=== PATIENT | male | born 1970 | race Caucasian/White ===

== ENCOUNTER 2017-03-05 23:33 | Emergency (ER) | payer OTHER ==
[2017-03-05 23:46] VITALS: BP 128/90; PULSE 83; RESP 20; TEMP 97.3; O2SAT 97
[2017-03-06] MEDS ORDERED: Tetanus/Diphtheria Toxoids 0.5 ml Syringe IM ONE ×2 (00:15→00:22)
--- NOTE | 2017-03-06 00:16 | C.PDOC ---
History Of Present Illness Patient is a 46 year old male who presents to the ER with a complaint of left big toe pain for the past 2 days after a heavy sofa fell on it. Patient noted blood under the nail, which he tried to drain with a needle at home yesterday. Today, Patient noted increased swelling and redness. Patient denies fever, chills, wound discharge, denies deformity, weakness, sensory or vascular deficits to Left foot. Ambulate to ED. Time Seen by Provider: 03/06/17 00:03 Chief Complaint (Nursing): Lower Extremity Problem/Injury History Per: Patient History/Exam Limitations: no limitations Onset/Duration Of Symptoms: Days (2) Current Symptoms Are (Timing): Still Present Recent travel outside of the [place]: No Additional History Per: Patient - Ankle/Foot Description Of Injury: Other (Dropped couch on toe) Past Medical History Reviewed: Historical Data, Nursing Documentation, Vital Signs Vital Signs: Last Vital Signs Temp 97.3 F L 03/05/17 23:36 Pulse 83 03/05/17 23:36 Resp 20 03/06/17 01:02 BP 128/90 03/05/17 23:36 Pulse Ox 97 03/06/17 00:53 - Medical History PMH: Kidney Stones Surgical History: No Surg Hx Family History: States: Unknown Family Hx - Social History Hx Tobacco Use: No Hx Alcohol Use: No Hx Substance Use: No - Immunization History Hx Tetanus Toxoid Vaccination: Yes Hx Influenza Vaccination: No Hx Pneumococcal Vaccination: No Review Of Systems Constitutional: Negative for: Fever, Chills Musculoskeletal: Positive for: Foot Pain (Left big toe). Negative for: Other ( Deformity of left big toe) Physical Exam - Physical Exam Appears: Well, Non-toxic, No Acute Distress Skin: Normal Color, Warm, No Rash Eye(s): bilateral: PERRL Extremity: Normal ROM, Tenderness (Left foot tenderness over 1st distal phalanx , (+)20% proximal subungual hematoma.), Capillary Refill (less than 2sec to Left foot), No Deformity, Swelling (Erythema nd edema to Left 1st distal phalanx. No proximal streaking, nO flactulance.) Neurological/Psych: Oriented x3, Normal Speech, Normal Motor, Normal Sensation, Normal Reflexes ED Course And Treatment O2 Sat by Pulse Oximetry: 97 (Room air) Pulse Ox Interpretation: Normal - Other Rad Left foot X-Ray: Interpreted by Me, Viewed By Me Interpretation: no acute fx or dislocation Progress Note: X-ray of left foot ordered. Doryx PO, tetanus IM, and ultram PO administered. On re-evaluation, pt is afebrile, hemodynamicaly stable. non- toxic. Ambulatory in ED with stable gait. Left foot: exam c/w small subungual hematoma 1st toe with mild erythema, edema of 1st distal phalanx. NO deformity, no proximal streaking, no flactulance. FAROM, no neurovascular deficits. Foot xray review and appears normal. Pt advised. ref. to f/u with [facility] In 2- 3 days for re-eval. return to ED if nay worsening or new changes. Disposition Counseled Patient/Family Regarding: Studies Performed, Diagnosis, Need For Followup, Rx Given - Disposition Referrals: [facility]ry [facility] [Outside] Disposition: HOME/ ROUTINE Disposition Time: 00:36 Condition: STABLE Additional Instructions: Warm salty water foot soaks Light duty, avoid prolong walking Take medication as prescribed Follow up with [facility] in 2-3 days for re-evaluation. Return to Ed if nay worsening or new changes. Prescriptions: Doxycycline Hyclate [Doryx] 100 mg PO BID #14 cap Ibuprofen [Motrin Tab] 400 mg PO Q6 #20 tab Instructions: Subungual Hematoma (ED), Foot Contusion (ED) Print Language: [place] LUCIAN - Clinical Impression Clinical Impression: Contusion, toe, Subungual hematoma - Scribe Statement The provider has reviewed the documentation as recorded by the Scribneida Hubbard All medical record entries made by the Scribneida were at my direction and personally dictated by me. I have reviewed the chart and agree that the record accurately reflects my personal performance of the history, physical exam, medical decision making, and the department course for this patient. I have also personally directed, reviewed, and agree with the discharge instructions and disposition.
--- NOTE | 2017-03-06 08:57 | RAD ---
PROCEDURE: Left Foot Radiographs. HISTORY: injury COMPARISON: None available. FINDINGS: BONES: No acute displaced fracture. JOINTS: No dislocation. SOFT TISSUES: Soft tissue swelling. No evidence of radiopaque foreign body. OTHER FINDINGS: None. IMPRESSION: Soft tissue swelling. No acute displaced fracture, dislocation, or significant joint effusion identified. If symptoms persist, or if there is continued clinical concern, x-ray follow-up in 7-10 days should be considered.
== END 2017-03-06 01:02 | disposition home or self-care (01) ==
LOC: C.ER 23:33
DX: S90.112A Contusion of left great toe without damage to nail, initial encounter (principal); W20.8XXA Other cause of strike by thrown, projected or falling object, initial encounter; Y93.89 Activity, other specified; Y92.008 Other place in unspecified non-institutional (private) residence as the place of occurrence of the external cause

== ENCOUNTER 2017-08-16 09:33 | Emergency (ER) | payer OTHER, SELFPAY ==
[2017-08-16 10:02] VITALS: TEMP 98
--- NOTE | 2017-08-16 10:03 | C.PDOC ---
Chief Complaint (Nursing): Chest Pain Past Medical History Vital Signs: Last Vital Signs Temp Pulse 77 08/16/17 09:59 Resp 14 08/16/17 09:59 BP 119/85 08/16/17 09:59 Pulse Ox 96 08/16/17 09:59 - Medical History PMH: Hypercholesterolemia, Kidney Stones, Chronic Kidney Disease Family History: States: Unknown Family Hx - Social History Hx Tobacco Use: No Hx Alcohol Use: No Hx Substance Use: No - Immunization History Hx Tetanus Toxoid Vaccination: No Hx Influenza Vaccination: No Hx Pneumococcal Vaccination: No ED Course And Treatment O2 Sat by Pulse Oximetry: 96 Disposition - Disposition
--- NOTE | 2017-08-16 10:13 | C.PDOC ---
History Of Present Illness Patient is a 47 year old male presents to Emergency Department for evaluation of intermittent substernal chest pain associated with palpitations for the last 2 days. Patient reports having several episodes of chest pain that lasts for approximately 10-15 minutes. Pain is described as strong, pressure and as burning sensation, and occasionally radiates to the left shoulder and back of his head. Notes that pain is worse when laying down and is relieved when sitting up. Patient notes that pain was worse last night, pt admits to eating a meal late last night. Patient states that his pain currently feels the same as last night. Otherwise, pt denies any shortness of breath, headache, fever, chills cough, nausea, vomiting, diarrhea, diaphoresis, jaw pain, back pain, lower extremity pain/swelling, recent travels, recent surgery, or recent prolonged immobilization. Chief Complaint (Nursing): Chest Pain History Per: Patient History/Exam Limitations: no limitations Onset/Duration Of Symptoms: Days (2), Intermittent Episodes Current Symptoms Are (Timing): Still Present Quality: Burning, Pressure Associated Symptoms: denies: Nausea, Dyspnea, Diaphoresis, Syncope Modifying Factors: None Exacerbating Factors: Other (laying down) Alleviating Factors: None Recent travel outside of the [place]: No Additional History Per: Patient Past Medical History Reviewed: Historical Data, Nursing Documentation, Vital Signs Vital Signs: Last Vital Signs Temp 98 F 08/16/17 11:40 Pulse 76 08/16/17 11:40 Resp 16 08/16/17 11:40 BP 110/67 08/16/17 11:40 Pulse Ox 96 08/16/17 12:29 - Medical History PMH: Hypercholesterolemia, Kidney Stones, Chronic Kidney Disease Family History: States: Unknown Family Hx - Social History Hx Tobacco Use: No Hx Alcohol Use: No Hx Substance Use: No - Immunization History Hx Tetanus Toxoid Vaccination: No Hx Influenza Vaccination: No Hx Pneumococcal Vaccination: No Review Of Systems Except As Marked, All Systems Reviewed And Found Negative. Constitutional: Negative for: Fever, Chills Cardiovascular: Positive for: Chest Pain, Palpitations. Negative for: Edema, Light Headedness Respiratory: Negative for: Cough, Shortness of Breath, Wheezing Gastrointestinal: Negative for: Nausea, Vomiting, Abdominal Pain, Diarrhea Musculoskeletal: Negative for: Neck Pain, Back Pain Neurological: Negative for: Headache, Dizziness Physical Exam - Physical Exam Appears: Non-toxic, No Acute Distress Skin: Normal Color, Warm, Dry Head: Atraumatic, Normacephalic Eye(s): bilateral: Normal Inspection, PERRL, EOMI Ear(s): Bilateral: Normal Nose: Normal Oral Mucosa: Moist Throat: Normal Neck: Normal ROM, Supple Lymphatic: No Adenopathy Chest: Symmetrical, No Deformity, Tenderness (mild sub sternal tenderness upon palpation), No Ecchymosis, No Subcutaneous Emphysema Cardiovascular: Rhythm Regular (S1, S2 within normal limits), No Murmur Respiratory: Normal Breath Sounds, No Rales, No Rhonchi, No Wheezing Gastrointestinal/Abdominal: Soft, No Tenderness Back: Normal Inspection, No CVA Tenderness Extremity: Normal ROM, No Pedal Edema, Capillary Refill (<2 secs.), No Deformity Extremity: Bilateral: Atraumatic, Normal Color And Temperature Pulses: Left Radial: Normal, Right Radial: Normal Neurological/Psych: Oriented x3, Normal Speech, Normal Cognition Gait: Steady ED Course And Treatment - Laboratory Results Result Diagrams: 08/16/17 10:20 08/16/17 10:20 Lab Interpretation: Normal ECG: Interpreted By Nh ECG Rhythm: Sinus Rhythm ECG Interpretation: Normal, No Acute Changes Interpretation Of ECG: NSR at 79 BPM,no acute STTW changes,no ectopy,axis wnl, intervals all wnl Rate From EC O2 Sat by Pulse Oximetry: 96 (on RA) Pulse Ox Interpretation: Normal - Radiology CXR: Interpreted by Nh CXR Interpretation: Yes: No Acute Disease Medical Decision Making Medical Decision Making: Blood work, EKG, CXR ordered and reviewed. Pain is positional,seems worse with recumbency.Likely GI in etiology.W/u is wnl Disposition Counseled Patient/Family Regarding: Studies Performed, Diagnosis, Need For Followup - Disposition Referrals: [facility] [Outside] Disposition: HOME/ ROUTINE Disposition Time: 11:07 Condition: GOOD Prescriptions: Pantoprazole Sodium [Protonix] 40 mg PO DAILY #14 cap Instructions: Chest Pain (ED) Forms: [facility] (Macedonian), [facility] (Telugu) Print Language: ITALIAN - Clinical Impression Clinical Impression: Atypical chest pain, Chest pain - Scribe Statement The provider has reviewed the documentation as recorded by the Scribe Mark Pendleton All medical record entries made by the Scribe were at my direction and personally dictated by me. I have reviewed the chart and agree that the record accurately reflects my personal performance of the history, physical exam, medical decision making, and the department course for this patient. I have also personally directed, reviewed, and agree with the discharge instructions and disposition.
[2017-08-16 10:24] LABS: BASO % 0.6 % (0.0-2.0); EOS # 0.2 K/uL (0.0-0.7); EOS % 3.8 % (0.0-4.0); HEMATOCRIT 44.8 % (35.0-51.0); LYMPH # 1.2 K/uL (1.0-4.3); LYMPH % 23.9 % (20.0-40.0); MEAN CELL VOLUME 90.7 fL (80.0-94.0); MEAN CORPUSCULAR HEMOGLOBIN 31.1 pg (27.0-31.0); MEAN CORPUSCULAR HGB CONC 34.3 g/dL (33.0-37.0); MEAN PLATELET VOLUME 8.3 fL (7.2-11.7); MONO # 0.5 K/uL (0.0-0.8); MONO % 10.7 % (0.0-10.0); NRBC % 0.1 % (0.0-2.0); RED CELL DISTRIBUTION WIDTH 13.2 % (11.5-14.5)
[2017-08-16 10:45] LABS: CHLORIDE 97 mmol/L (98-107)
[2017-08-16 10:46] LABS: POTASSIUM 4.2 mmol/L (3.6-5.2); SODIUM 135 mmol/L (132-148)
[2017-08-16 10:48] LABS: ALB/GLOB RATIO 1.4 (1.0-2.1); ALKALINE PHOSPHATASE 79 U/L (38-126); AST/SGOT 25 U/L (17-59); BILIRUBIN,TOTAL 0.6 mg/dL (0.2-1.3); CARBON DIOXIDE 27 mmol/L (22-30); GFR AFRICAN-AMERICAN > 60; TOTAL PROTEIN 7.8 g/dL (6.3-8.3)
[2017-08-16 10:49] LABS: ALT/SGPT 44 U/L (21-72); BLOOD UREA NITROGEN 14 mg/dL (9-20); CALCIUM 9.2 mg/dl (8.6-10.4); GLUCOSE,RANDOM 94 mg/dL (75-110)
--- NOTE | 2017-08-16 10:54 | RAD ---
HISTORY: chest pain COMPARISON: None available. TECHNIQUE: Chest, one view. FINDINGS: Examination limited by habitus and hypoinflation. LUNGS: No focal consolidation. Please note that chest x-ray has limited sensitivity for the detection of pulmonary masses. PLEURA: No significant pleural effusion identified. No definite pneumothorax . CARDIOVASCULAR: Heart size appears top normal. OSSEOUS STRUCTURES: No acute osseous abnormality identified. VISUALIZED UPPER ABDOMEN: Unremarkable. OTHER FINDINGS: None. IMPRESSION: Hypoinflation.
[2017-08-16 11:42] VITALS: BP 110/67; PULSE 76; RESP 16
[2017-08-16 12:29] VITALS: O2SAT 96
--- NOTE | 2017-08-16 23:12 | CARD ---
APPROVED REPORT EKG Measurement Heart [id number] <Conclusion> Normal sinus rhythm Normal ECG
== END 2017-08-16 11:41 | disposition home or self-care (01) ==
LOC: C.ER 09:33
DX: R07.89 Other chest pain (principal)

== ENCOUNTER 2018-02-08 12:00 | Emergency (ER) | payer MEDICAID, OTHER ==
[2018-02-08 12:28] VITALS: O2SAT 98
[2018-02-08 12:52] LABS: URINE BILIRUBIN NEGATIVE (NEGATIVE); URINE BLOOD NEGATIVE (NEGATIVE); URINE CLARITY Clear (Clear); URINE COLOR Yellow (YELLOW); URINE GLUCOSE (UA) NORMAL (Normal); URINE LEUKOCYTE ESTERASE NEG Leu/uL (Negative); URINE PROTEIN NEGATIVE (NEGATIVE); URINE UROBILINOGEN NORMAL mg/dL (0.2-1.0)
--- NOTE | 2018-02-08 12:52 | C.PDOC ---
History Of Present Illness 47yo male, presents to ED with complaints of worsening left lower quadrant pain for the past week, worsening over the past 4 days. Patient states the pain is constant and he has had decreased appetite, and loose bowel movements for the past day. He has had similar symptoms in the past and states "I don't know why" ; reports he has not followed up for further evaluation. He denies any nausea, vomiting, fever, chills, weakness. No other complaints. Time Seen by Provider: 02/08/18 12:33 Chief Complaint (Nursing): Abdominal Pain History Per: Patient, Manager Pool History/Exam Limitations: no limitations Onset/Duration Of Symptoms: Days (7), Persistent, Worse Since (4 days) Current Symptoms Are (Timing): Gone Location Of Pain/Discomfort: LLQ Quality Of Discomfort: "Pain" Associated Symptoms: Diarrhea (loose stools), Loss Of Appetite. denies: Fever, Chills, Nausea, Vomiting, Back Pain, Chest Pain, Constipation, Urinary Symptoms Past Medical History Reviewed: Historical Data, Nursing Documentation, Vital Signs Vital Signs: Last Vital Signs Temp 97.9 F 02/08/18 12:24 Pulse 86 02/08/18 12:24 Resp 20 02/08/18 12:24 BP 125/83 02/08/18 12:24 Pulse Ox 98 02/08/18 13:16 - Medical History PMH: Hypercholesterolemia, Kidney Stones, Chronic Kidney Disease Surgical History: No Surg Hx Family History: States: Unknown Family Hx - Social History Hx Tobacco Use: No Hx Alcohol Use: No Hx Substance Use: No - Immunization History Hx Tetanus Toxoid Vaccination: No Hx Influenza Vaccination: No Hx Pneumococcal Vaccination: No Review Of Systems Except As Marked, All Systems Reviewed And Found Negative. Constitutional: Negative for: Fever, Chills Cardiovascular: Negative for: Chest Pain Gastrointestinal: Positive for: Abdominal Pain, Diarrhea. Negative for: Nausea , Vomiting Genitourinary: Negative for: Dysuria, Frequency, Hematuria Physical Exam - Physical Exam Appears: Non-toxic, Other (mild distress) Skin: Normal Color, Warm, Dry Head: Atraumatic, Normacephalic Eye(s): bilateral: Normal Inspection, PERRL, EOMI Neck: Normal ROM, Supple Chest: Symmetrical Cardiovascular: Rhythm Regular Respiratory: Normal Breath Sounds Gastrointestinal/Abdominal: Soft, Tenderness (left lower quadrant), No Guarding , No Rebound Back: Normal Inspection Extremity: Normal ROM, No Deformity Neurological/Psych: Oriented x3 ED Course And Treatment - Laboratory Results Result Diagrams: 02/08/18 13:16 02/08/18 13:16 O2 Sat by Pulse Oximetry: 98 (RA) Pulse Ox Interpretation: Normal Progress - Re-Evaluation Re-evaluation Note: 02/08/18 16:15 APPEARS COMFORTABLE NAD NO S/S ACUTE ABD. NO ACUTE FINDINGS. ADVISED FU CLINIC - Data Reviewed Data Reviewed: Lab, Diagnostic imaging, Old records Medical Decision Making Medical Decision Making: Plan: -- Patient has been NPO since this morning. -- CT Abdomen and Pelvis w/ IV Contrast -- CMP -- Lipase -- CBC -- Morphine 4mg IVP -- Zofran 4mg IVP -- IV Fluids Disposition Counseled Patient/Family Regarding: Studies Performed, Diagnosis, Need For Followup - Disposition Referrals: [facility] [Outside] [facility] [Outside] Disposition: HOME/ ROUTINE Disposition Time: 16:17 Condition: IMPROVED Instructions: Acute Abdomen (Belly Pain), Adult (DC) Forms: [employer] (German), Work Excuse Print Language: DOMINICAN - Clinical Impression Clinical Impression: Abdominal pain - Scribe Statement The provider has reviewed the documentation as recorded by the Scribe (Gladys Landin) Provider Attestation: All medical record entries made by the Scribe were at my direction and personally dictated by me. I have reviewed the chart and agree that the record accurately reflects my personal performance of the history, physical exam, medical decision making, and the department course for this patient. I have also personally directed, reviewed, and agree with the discharge instructions and disposition.
[2018-02-08 13:27] LABS: BASO % 0.3 % (0.0-2.0); EOS # 0.1 K/uL (0.0-0.7); EOS % 1.5 % (0.0-4.0); HEMOGLOBIN 15.3 g/dL (12.0-18.0); LYMPH # 1.7 K/uL (1.0-4.3); LYMPH % 21.9 % (20.0-40.0); MEAN CELL VOLUME 90.2 fL (80.0-94.0); MEAN CORPUSCULAR HEMOGLOBIN 31.8 pg (27.0-31.0); MEAN CORPUSCULAR HGB CONC 35.2 g/dL (33.0-37.0); MEAN PLATELET VOLUME 8.5 fL (7.2-11.7); MONO # 0.8 K/uL (0.0-0.8); MONO % 10.6 % (0.0-10.0); NEUT # 5.1 K/uL (1.8-7.0); NEUT % 65.7 % (50.0-75.0); NRBC % 0.1 % (0.0-2.0); RBC 4.81 Mil/uL (4.40-5.90); RED CELL DISTRIBUTION WIDTH 13.2 % (11.5-14.5); WHITE BLOOD COUNT 7.8 K/uL (4.8-10.8)
[2018-02-08 13:40] LABS: ALB/GLOB RATIO 1.3 (1.0-2.1); ALBUMIN 4.6 g/dL (3.5-5.0); ALT/SGPT 34 U/L (21-72); AST/SGOT 28 U/L (17-59); BLOOD UREA NITROGEN 16 mg/dL (9-20); GFR AFRICAN-AMERICAN > 60; GFR NON-AFRICAN AMERICAN > 60
[2018-02-08] MEDS ORDERED: Morphine 4 MG/ML VIAL ONE (13:40)
[2018-02-08] MEDS: Sodium Chloride 0.9% 1,000 ML IV ONE (13:44)
[2018-02-08 14:14] LABS: LIPASE 31 U/L (23-300)
[2018-02-08] MEDS ORDERED: Iodixanol 320 MG/ML 100 ML BOTTLE IV ONE (14:32)
--- NOTE | 2018-02-08 16:06 | CT ---
PROCEDURE: CT Abdomen and Pelvis with contrast HISTORY: abd pain LLQ COMPARISON: 03/17/2015 TECHNIQUE: Contrast dose: 100 mL Visipaque 320 Radiation dose: Total exam DLP = 902.17 mGy-cm. This CT exam was performed using one or more of the following dose reduction techniques: Automated exposure control, adjustment of the mA and/or kV according to patient size, and/or use of iterative reconstruction technique. FINDINGS: LOWER THORAX: Unremarkable. LIVER: Unremarkable. No gross lesion or ductal dilatation. GALLBLADDER AND BILE DUCTS: Unremarkable. PANCREAS: Unremarkable. No gross lesion or ductal dilatation. SPLEEN: Unremarkable. ADRENALS: Unremarkable. No mass. KIDNEYS AND URETERS: 3 mm nonobstructing mid right renal calculus. 5 mm nonobstructing left lower pole renal calculus. No change compared to prior examination. No hydronephrosis. No renal mass. VASCULATURE: Unremarkable. No aortic aneurysm. BOWEL: Mild sigmoid diverticulosis. No evidence of diverticulitis. No bowel obstruction. No other abnormal bowel loops. APPENDIX: Normal appendix. PERITONEUM: Unremarkable. No free fluid. No free air. LYMPH NODES: Unremarkable. No enlarged lymph nodes. BLADDER: Unremarkable. REPRODUCTIVE: Normal prostate BONES: No acute fracture. OTHER FINDINGS: None. IMPRESSION: Bilateral small nonobstructing renal calculi. No evidence of diverticulitis. No other significant abnormality
[2018-02-08 16:22] VITALS: BP 126/84; PULSE 81; RESP 18; TEMP 97.8
== END 2018-02-08 16:22 | disposition home or self-care (01) ==
LOC: C.ER 12:00
DX: R10.9 Unspecified abdominal pain (principal); E78.00 Pure hypercholesterolemia, unspecified; N18.9 Chronic kidney disease, unspecified
CPT/HCPCS: 74177; 80053; 81001; 83690; 85025; 96361; 96374; 96375; 99285; J2270; J2405; J7040; Q9967

== ENCOUNTER 2018-09-19 10:13 | Emergency (ER) | payer OTHER ==
[2018-09-19 10:44] VITALS: BP 118/80; PULSE 83; RESP 20; TEMP 98.6; O2SAT 97
[2018-09-19] MEDS ORDERED: Amoxicillin-Clav 875-125 mg Tab PO STA (11:43)
--- NOTE | 2018-09-19 11:46 | C.PDOC ---
History Of Present Illness 48 y/o male w/o significant PMhx presents to the ER for evaluation of flu- like symptoms associated with nasal congestion, runny nose, and sore throat which has been present for the past 1 week. Pt states , developed intermittent frontal headache since yesterday. Otherwise, pt denies having high fever, chills, denies worse headache of life, visual changes, drooling, neck pain, CP,SOB, dyspnea, nausea, vomiting, abdominal pain, UTI sx. Ambulate to Ed for evaluation, not in any apparent distress. Time Seen by Provider: 09/19/18 11:28 Chief Complaint (Nursing): Headache History Per: Patient History/Exam Limitations: no limitations Onset/Duration Of Symptoms: Days Current Symptoms Are (Timing): Still Present Severity: Moderate Past Medical History Reviewed: Historical Data, Nursing Documentation, Vital Signs Vital Signs: Last Vital Signs Temp 98.6 F 09/19/18 10:40 Pulse 83 09/19/18 10:40 Resp 20 09/19/18 10:40 BP 118/80 09/19/18 10:40 Pulse Ox 97 09/19/18 10:40 - Medical History PMH: Hypercholesterolemia, Kidney Stones, Chronic Kidney Disease Other Surgeries: Hx of surgeries Family History: States: No Known Family Hx - Social History Hx Tobacco Use: No Hx Alcohol Use: No Hx Substance Use: No - Immunization History Hx Tetanus Toxoid Vaccination: No Hx Influenza Vaccination: No Hx Pneumococcal Vaccination: No Review Of Systems Except As Marked, All Systems Reviewed And Found Negative. Constitutional: Negative for: Fever, Chills ENT: Positive for: Nose Discharge (runny nose), Nose Congestion Cardiovascular: Negative for: Chest Pain Respiratory: Negative for: Shortness of Breath Gastrointestinal: Negative for: Nausea, Vomiting, Abdominal Pain Neurological: Positive for: Headache (frontal headache) Physical Exam - Physical Exam Appears: Well, Non-toxic, No Acute Distress Skin: Normal Color, Warm, Dry, No Rash Head: Normacephalic Eye(s): bilateral: PERRL Ear(s): Bilateral: Normal Nose: No Flaring, Discharge (scant clear B/L), Other (mild B/L paranasal>frontal tenderness. No edema, no erythema.) Oral Mucosa: Moist, No Drooling Tongue: Normal Appearing Lips: Normal Appearing Throat: Erythema (mild b/L), No Drooling Neck: Trachea Midline, Supple, Other ((-) meningeal sign) Cardiovascular: Rhythm Regular, No Murmur, No JVD, Other ((-) carotid bruits B/L) Respiratory: No Decreased Breath Sounds, No Accessory Muscle Use, No Stridor, No Wheezing Gastrointestinal/Abdominal: Soft, No Tenderness, No Distention, No Guarding Back: No CVA Tenderness Extremity: Normal ROM, No Deformity, No Swelling Neurological/Psych: Oriented x3, Normal Speech, Normal Motor, Normal Sensation, Normal Reflexes ED Course And Treatment O2 Sat by Pulse Oximetry: 97 (RA) Pulse Ox Interpretation: Normal Progress Note: Patient treated with Amoxicillin PO, Tylenol PO,and Prednisone PO. On re-evaluation, pt is afebrile, hemodynamicaly stable. Non-toxic. Ambulatory in ED with stable gait. PulseOx 97% RA. ENT: no acute findings. neck: Supple, (-) meningeal sign. Lungs: CTA B/L, BS equal B/L. ABd: benign, (-) guarding, (-) rebound. Neurological intact. Pt has clinical findings c/w sinus headache. Pt advised. ref. to F/u with PM, ENT in 2-3 days for re-eval. return if any new changes Disposition Counseled Patient/Family Regarding: Diagnosis, Need For Followup, Rx Given - Disposition Referrals: [facility] [Outside] Disposition: HOME/ ROUTINE Disposition Time: 11:46 Condition: STABLE Additional Instructions: Encourage fluids take medication as prescribed Follow up with PMD in 2-3 days for re-evaluation. return to Ed if any worsening or new changes. 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 - Scribe Statement The provider has reviewed the documentation as recorded by the Ebonie Meadows Provider Attestation All medical record entries made by the Shirleyibe were at my direction and personall y dictated by me. I have reviewed the chart and agree that the record accurately reflects my personal performance of the history, physical exam, medical decision making, and the department course for this patient. I have also personally directed, reviewed, and agree with the discharge instructions and disposition.
== END 2018-09-19 12:25 | disposition home or self-care (01) ==
LOC: C.ER 10:13
DX: J32.9 Chronic sinusitis, unspecified (principal); R51 Headache

== ENCOUNTER 2018-12-20 10:48 | Emergency (ER) | payer OTHER ==
[2018-12-20 10:58] VITALS: BP 124/85; PULSE 99; RESP 18; TEMP 98.7; O2SAT 95
[2018-12-20] MEDS ORDERED: Naproxen 550 mg Tab PO STA (11:24)
[2018-12-20] MEDS ORDERED: Naproxen 550 mg Tab PO ONE (11:35)
--- NOTE | 2018-12-20 11:37 | C.PDOC ---
History Of Present Illness 48 y/o male presents to the ED for evaluation of low back pain s/p fall last night. Patient states he slipped backwards landing on his lower back and injuring the right arm. He now complains of worsening low back pain. Otherwise he denies any numbness, weakness, paresthesias, or incontinence of bowel or bladder. No other injury. Time Seen by Provider: 12/20/18 11:14 Chief Complaint (Nursing): Trauma History Per: Patient History/Exam Limitations: no limitations Onset/Duration Of Symptoms: Days (1) Current Symptoms Are (Timing): Still Present Associated Symptoms: None Exacerbating Factor(s): Movement Past Medical History Reviewed: Historical Data, Nursing Documentation, Vital Signs Vital Signs: Last Vital Signs Temp 98.7 F 12/20/18 10:55 Pulse 99 H 12/20/18 10:55 Resp 18 12/20/18 10:55 BP 124/85 12/20/18 10:55 Pulse Ox 95 12/20/18 10:55 - Medical History PMH: Hypercholesterolemia, Kidney Stones, Chronic Kidney Disease Family History: States: Unknown Family Hx - Social History Hx Tobacco Use: No Hx Alcohol Use: No Hx Substance Use: No - Immunization History Hx Tetanus Toxoid Vaccination: No Hx Influenza Vaccination: No Hx Pneumococcal Vaccination: No Review Of Systems Except As Marked, All Systems Reviewed And Found Negative. Constitutional: Negative for: Fever, Chills Cardiovascular: Negative for: Chest Pain Respiratory: Negative for: Shortness of Breath Gastrointestinal: Negative for: Abdominal Pain Musculoskeletal: Positive for: Back Pain Skin: Negative for: Lesions, Bruising Neurological: Negative for: Weakness, Numbness Physical Exam - Physical Exam Appears: Non-toxic, No Acute Distress Skin: Warm, Dry, No Rash Head: Atraumatic, Normacephalic Eye(s): bilateral: Normal Inspection, PERRL, EOMI Ear(s): Bilateral: Normal Oral Mucosa: Moist Throat: No Erythema, No Exudate Neck: Normal ROM, Supple Chest: Symmetrical Respiratory: No Accessory Muscle Use, Other (Speaking in complete sentences) Gastrointestinal/Abdominal: Soft, No Distention Back: No Vertebral Tenderness, No Decreased ROM, Paraspinal Tenderness (Left- sided paralumbar tenderness) Extremity: Normal ROM, Capillary Refill (< 2 sec), Other (bilateral arms have FROM, no swelling or tenderness) Extremity: Bilateral: Atraumatic, Normal Color And Temperature, Normal ROM Pulses: Left Dorsalis Pedis: Normal, Right Dorsalis Pedis: Normal Neurological/Psych: Oriented x3, Normal Motor, Normal Sensation Gait: Steady ED Course And Treatment O2 Sat by Pulse Oximetry: 95 (RA) Pulse Ox Interpretation: Normal - Other Rad LS spine x-ray X-Ray: Viewed By Me, Read By Radiologist Interpretation: Accession No. : [id number]. Patient Name / ID : TAVO BURNHAM / [id number]. Exam Date : 12/20/2018 11:26:29 ( Approved ). Study Comment : Sex / Age : M / 48Y. Creator : Jhonny Abdi MD. Dictator : Jhonny Abdi MD. Shop Mechanic Helper : Tile Grinder : Jhonny Abdi MD. Approver2 : Report Date : 12/20/2018 11:49:21. My Comment : . Date of service: 12/20/2018. PROCEDURE: Radiographs of the Lumbar Spine. HISTORY: fall onto lower back. COMPARISON: 02/08/2018 CT abdomen and pelvis to include lumbar vertebral bodies and spine. FINDINGS: BONES: Wedge deformity L1 vertebral body, slight. This is unchanged compared to the prior CT scan 02/08/2018. Non marginal osteophyte formation at several levels. DISC SPACES: Preservation of disc spaces. OTHER FINDINGS: None. IMPRESSION: No significant or acute findings to account for/ related to the clinical presentation. Medical Decision Making Medical Decision Making: Initial Plan: - LS spine x-ray - 550 mg PO Naproxen Imaging reviewed, shows no acute findings. On re-exam, the patient reports improvement of symptoms. Lungs are CTA, heart is RRR, abdomen is soft, non-tender and tolerating PO well. Pt is ambulatory in the ED with steady gait. Follow up with the medical doctor within 1-2 days. Return if worsened. Disposition - Disposition Referrals: Dharmesh Jacobo MD [Non-Staff] - Disposition: HOME/ ROUTINE Disposition Time: 12:00 Condition: GOOD Additional Instructions: Follow up with the medical doctor within 1-2 days. Return if worsened. 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 - Scribe Statement The provider has reviewed the documentation as recorded by the Ebonie Amaya All medical record entries made by the Ebonie were at my direction and personally dictated by me. I have reviewed the chart and agree that the record accurately reflects my personal performance of the history, physical exam, medical decision making, and the department course for this patient. I have also personally directed, reviewed, and agree with the discharge instructions and disposition.
--- NOTE | 2018-12-20 11:52 | RAD ---
Date of service: 12/20/2018 PROCEDURE: Radiographs of the Lumbar Spine. HISTORY: fall onto lower back COMPARISON: 02/08/2018 CT abdomen and pelvis to include lumbar vertebral bodies and spine FINDINGS: BONES: Wedge deformity L1 vertebral body, slight. This is unchanged compared to the prior CT scan 02/08/2018. Non marginal osteophyte formation at several levels. DISC SPACES: Preservation of disc spaces. OTHER FINDINGS: None. IMPRESSION: No significant or acute findings to account for/ related to the clinical presentation.
== END 2018-12-20 12:48 | disposition home or self-care (01) ==
LOC: C.ER 10:48
DX: S39.012A Strain of muscle, fascia and tendon of lower back, initial encounter (principal); W01.0XXA Fall on same level from slipping, tripping and stumbling without subsequent striking against object, initial encounter

== ENCOUNTER 2019-01-24 11:21 | Emergency (ER) | payer OTHER ==
[2019-01-24 11:32] VITALS: O2SAT 97
[2019-01-24 13:43] LABS: BASO % 0.4 % (0.0-2.0); EOS # 0.1 K/uL (0.0-0.7); EOS % 1.7 % (0.0-4.0); HEMOGLOBIN 15.8 g/dL (12.0-18.0); LYMPH # 1.4 K/uL (1.0-4.3); LYMPH % 24.2 % (20.0-40.0); MEAN CORPUSCULAR HGB CONC 34.5 g/dL (33.0-37.0); MEAN PLATELET VOLUME 8.4 fL (7.2-11.7); MONO # 0.5 K/uL (0.0-0.8); MONO % 8.5 % (0.0-10.0); NEUT # 3.8 K/uL (1.8-7.0); NEUT % 65.2 % (50.0-75.0); NRBC % 0.1 % (0.0-2.0); RBC 5.09 Mil/uL (4.40-5.90); RED CELL DISTRIBUTION WIDTH 13.3 % (11.5-14.5); WHITE BLOOD COUNT 5.8 K/uL (4.8-10.8)
[2019-01-24 13:48] LABS: URINE BILIRUBIN NEGATIVE (NEGATIVE); URINE BLOOD NEGATIVE (NEGATIVE); URINE CLARITY Clear (Clear); URINE COLOR Straw (YELLOW); URINE GLUCOSE (UA) NORMAL (Normal); URINE LEUKOCYTE ESTERASE NEG Leu/uL (Negative); URINE PROTEIN NEGATIVE (NEGATIVE); URINE UROBILINOGEN NORMAL mg/dL (0.2-1.0)
[2019-01-24 13:56] LABS: ALB/GLOB RATIO 1.5 (1.0-2.1); ALBUMIN 4.9 g/dL (3.5-5.0); ALT/SGPT 40 U/L (21-72); AST/SGOT 32 U/L (17-59); BLOOD UREA NITROGEN 15 mg/dL (9-20); CALCIUM 9.8 mg/dl (8.6-10.4); GFR NON-AFRICAN AMERICAN > 60
--- NOTE | 2019-01-24 14:02 | C.PDOC ---
History Of Present Illness 48 year old male presents to the emergency department with complaints of headache, described as a pressure and aching sensation for the last two hours, associated with blurry vision, chest pain, nausea, and shortness of breath. He has had similar episodes in the past with sinus congestion and pressure but denies associated nasal discharge. Patient states that the pain has recurred as it happened intermittently over the past several days. Patient states that he has not taken anything for the pain, and denies thunderclap association, fever, neck pain, and history of HTN. Time Seen by Provider: 01/24/19 13:10 Chief Complaint (Nursing): Headache History Per: Patient History/Exam Limitations: no limitations Onset/Duration Of Symptoms: Hrs (2) Current Symptoms Are (Timing): Still Present Quality: Aching, Pressure, "Pain" Associated Symptoms: Blurred Vision, Nausea, Vomiting, Other (chest pain, shortness of breath) Past Medical History Reviewed: Historical Data, Nursing Documentation, Vital Signs Vital Signs: Last Vital Signs Temp 98.2 F 01/24/19 11:29 Pulse 94 H 01/24/19 11:29 Resp 18 01/24/19 11:29 BP 115/79 01/24/19 11:29 Pulse Ox 97 01/24/19 11:29 - Medical History PMH: Hypercholesterolemia, Kidney Stones, Chronic Kidney Disease Surgical History: No Surg Hx Family History: States: No Known Family Hx - Social History Hx Tobacco Use: No Hx Alcohol Use: No Hx Substance Use: No - Immunization History Hx Tetanus Toxoid Vaccination: No Hx Influenza Vaccination: No Hx Pneumococcal Vaccination: No Review Of Systems Constitutional: Negative for: Fever, Chills Eyes: Positive for: Vision Change Cardiovascular: Positive for: Chest Pain Respiratory: Positive for: Shortness of Breath Gastrointestinal: Positive for: Nausea Musculoskeletal: Negative for: Neck Pain Neurological: Positive for: Headache Physical Exam - Physical Exam Appears: Non-toxic, No Acute Distress Skin: Normal Color, Warm, Dry Head: Atraumatic, Normacephalic Eye(s): bilateral: Normal Inspection, PERRL, EOMI Ear(s): Bilateral: Normal Oral Mucosa: Moist Neck: Normal, Supple Chest: Symmetrical, No Tenderness Cardiovascular: Rhythm Regular, No Murmur Respiratory: Normal Breath Sounds, No Rales, No Rhonchi, No Wheezing Gastrointestinal/Abdominal: Soft, No Tenderness, No Guarding, No Rebound Extremity: Normal ROM Neurological/Psych: Oriented x3, Normal Speech, Normal Cognition, Normal Cranial Nerves, Normal Motor ED Course And Treatment - Laboratory Results Result Diagrams: 01/24/19 13:33 01/24/19 13:33 Lab Results: Urine Color Straw (YELLOW) 01/24/19 13:33 Urine Clarity Clear (Clear) 01/24/19 13:33 Urine pH 7.0 (5.0-8.0) 01/24/19 13:33 Ur Specific [place] 1.002 (1.003-1.030) L 01/24/19 13:33 Urine Protein Negative mg/dL (NEGATIVE) 01/24/19 13:33 Urine Glucose (UA) Normal mg/dL (Normal) 01/24/19 13:33 Urine Ketones Negative mg/dL (NEGATIVE) 01/24/19 13:33 Urine Blood Negative (NEGATIVE) 01/24/19 13:33 Urine Nitrate Negative (NEGATIVE) 01/24/19 13:33 Urine Bilirubin Negative (NEGATIVE) 01/24/19 13:33 Urine Urobilinogen Normal mg/dL (0.2-1.0) 01/24/19 13:33 Ur Leukocyte Esterase Neg Nathaniel/uL (Negative) 01/24/19 13:33 Lab Interpretation: Normal ECG: Interpreted By Me, Viewed By Me ECG Rhythm: Sinus Rhythm ECG Interpretation: Normal Rate From EC O2 Sat by Pulse Oximetry: 97 (RA) Pulse Ox Interpretation: Normal Reevaluation Time: 15:21 Reassessment Condition: Improved Medical Decision Making Medical Decision Making: Plan: EKG CMP Magnesium Troponin CBC Urinalysis Disposition Counseled Patient/Family Regarding: Studies Performed, Diagnosis, Need For Followup, Rx Given - Disposition Referrals: Marilou Christy MD [Medical Doctor] - Disposition: HOME/ ROUTINE Disposition Time: 15:27 Condition: GOOD Prescriptions: Fluticasone Propionate [Flonase] 2 spr NS DAILY #1 inhaler Loratadine/Pseudoephedrine [Claritin-D 24 Hour Tablet] 1 each PO DAILY #90 tab.er.24h Instructions: Sinus Headache (DC) Forms: [employer] (Honduran) Print Language: SINGAPOREAN - Clinical Impression Clinical Impression: Headache - Scribe Statement The provider has reviewed the documentation as recorded by the Scribe (Jose L Evangelista) Provider Attestation: All medical record entries made by the Scribe were at my direction and personally dictated by me. I have reviewed the chart and agree that the record accurately reflects my personal performance of the history, physical exam, medical decision making, and the department course for this patient. I have also personally directed, reviewed, and agree with the discharge instructions and disposition.
[2019-01-24 15:28] VITALS: BP 114/72; PULSE 67; RESP 17; TEMP 98.4
== END 2019-01-24 15:52 | disposition home or self-care (01) ==
LOC: C.ER 11:21
DX: R51 Headache (principal); E78.00 Pure hypercholesterolemia, unspecified; N18.9 Chronic kidney disease, unspecified